=== PATIENT | female | born 1990 | race Caucasian/White ===

== ENCOUNTER 2019-02-14 08:54 | Inpatient (IN) ==
[2019-02-14 09:40] LABS: Basophils % 0.2 % (0.0-0.8); Eosinophils % 0.3 % (0.00-10.9); Hematocrit 35.9 VOL% (35.7-47.0); Hemoglobin 12.2 GM/DL (12.0-16.0); Immature Granulocytes % 1.1 %; Immature Granulocytes Absolute 0.13 #; Lymphocytes # 1.9 10*3/uL (1.4-4.0); Lymphocytes % 16.7 % (21.3-54.2); Mean Corpuscular Volume 91.8 FL (87-102); Mean Platelet Volume 10.6 FL (9.6-12.0); Monocytes % 7.4 % (1.7-12.7); Neutrophils % 74.3 % (38.7-73.9); Platelet Count 259 T/CUMM (130-400); Red Blood Count 3.91 MC/CUMM (3.8-5.5); White Blood Count 11.5 T/CUMM (4-12)
[2019-02-14] MEDS ORDERED: MAGNESIUM SULF RIDER 4 GM in PREMIX 1 EACH IV ONE (09:40)
[2019-02-14 09:49] LABS: INR 0.9; PT Patient Result 9.4 SECS (9.6-12.2); Partial Thromboplastin Time 25.6 SECS (20.8-36.0)
[2019-02-14 10:07] LABS: Alanine Aminotransferase 31 U/L (13-56); Albumin 2.6 G/DL (3.4-5.0); Alkaline Phosphatase 101 U/L (45-117); Aspartate Amino Transferase 17 U/L (0-37); Bilirubin,Total < 0.39 MG/DL (0.2-1.0); Blood Urea Nitrogen 8 MG/DL (7-18); Calcium 8.4 MG/DL (8.5-10.1); Estimated Glom Filtration Rate 153 ML/MIN; Glucose 108 MG/DL (74-106); Osmolality,Calculated 277.4 MOS/KG (273-304); Total Protein 6.5 G/DL (6.4-8.3); Uric Acid 3.5 MG/DL (2.6-6.0)
[2019-02-14] MEDS: MAGNESIUM SULF DRIP 40 GM/1,000 ML ML IV SCH (10:15)
[2019-02-14] MEDS: LACTATED RINGERS 1,000 ML IV SCH (10:16)
[2019-02-14 11:04] LABS: Amorphous Crystals,Urine Few /HPF (Few); Apearance,Urine Slightly Hazy (Clear); Bilirubin,Urine Negative (Negative); Blood, Urine Negative (Negative); Glucose,Urine (UA) Negative (Negative); Ketones,Urine Negative (Negative); Mucus,Urine Many /LPF (Occasional); Nitrite,Urine Negative (Negative); Protein,Urine 30 MG/DL; RBC,Urine 1 /HPF (0-4); Squamous Epithelial Cell,Urine Occasional /HPF (0-10); Urine Color Yellow (Yellow); Urine Specific Gravity 1.019 (1.001-1.035); Urine Urobilinogen < 2.0 EU/DL (0.2-1.0); WBC,Urine <1 /HPF (0-6)
[2019-02-14] MEDS: AMPICILLIN INJ 2,000 MG in SODIUM CHLORIDE 0.9% 100 ML IV SCH ×2 (12:08→18:47)
[2019-02-15] MEDS: AMPICILLIN INJ 2,000 MG in SODIUM CHLORIDE 0.9% 100 ML IV SCH ×2 (00:02→05:47)
[2019-02-15] MEDS ORDERED: ACETAMINOPHEN 325 MG TABLET PO ONE (03:51)
[2019-02-15] MEDS: MAGNESIUM SULF DRIP 40 GM/1,000 ML ML IV SCH (05:20)
[2019-02-15] MEDS ORDERED: OXYTOCIN/LR 20 UNIT/1,000 ML BAG IV SCH (06:00)
[2019-02-15] MEDS ORDERED: AMPICILLIN INJ 1,000 MG in SODIUM CHLORIDE 0.9% 100 ML IV SCH (10:00)
[2019-02-15] MEDS ORDERED: CITRIC ACID/SODIUM CITRATE 30 ML UDCUP PO ONE (12:06)
[2019-02-15] MEDS ORDERED: ceFAZolin 3,000 MG in SYRINGE 1 EACH IV ONE (12:06)
[2019-02-15] MEDS ORDERED: FAMOTIDINE 20 MG/2 ML VIAL IV ONE (12:06)
[2019-02-15] MEDS: hydrALAZINE 20 MG/1 ML VIAL IV PRN ×2 (12:11→12:31)
[2019-02-15] MEDS: LACTATED RINGERS 1,000 ML IV SCH ×2 (12:13→22:14)
[2019-02-15] MEDS ORDERED: TRANEXAMIC ACID 1,000 MG/10 ML VIAL ONE (12:59)
[2019-02-15] MEDS ORDERED: miSOPROStoL 200 MCG TABLET ONE (12:59)
[2019-02-15] MEDS ORDERED: METHYLERGONOVINE 0.2 MG/1 ML AMP ONE (13:00)
[2019-02-15] MEDS ORDERED: CARBOPROST TROMETHAMINE 250 MCG/ML AMP IM ONE (13:00)
[2019-02-15 14:30] LABS: Amorphous Crystals,Urine Occasional /HPF (Few); Apearance,Urine CLEAR (Clear); Bilirubin,Urine Negative (Negative); Blood, Urine Negative (Negative); Glucose,Urine (UA) Negative (Negative); Ketones,Urine 80 mg/dL (Negative); Mucus,Urine Occasional /LPF (Occasional); Nitrite,Urine Negative (Negative); Protein,Urine Negative; RBC,Urine 1 /HPF (0-4); Urine Color Yellow (Yellow); Urine Specific Gravity 1.013 (1.001-1.035); Urine Urobilinogen < 2.0 EU/DL (0.2-1.0); WBC,Urine <1 /HPF (0-6)
[2019-02-15] MEDS ORDERED: BUPIVACAINE SPINAL 0.75% 2 ML AMP SPINAL ONE (14:35)
[2019-02-15] MEDS ORDERED: PHENYLEPHRINE 1 MG/10 ML SYRINGE IV ONE (14:37)
[2019-02-15] MEDS ORDERED: LACTATED RINGERS 2,000 ML IV ONE (14:37)
[2019-02-15] MEDS ORDERED: MORPHINE 10 MG/10 ML VIAL ONE (14:37)
[2019-02-15] MEDS ORDERED: ONDANSETRON 4 MG/2 ML VIAL ONE (14:37)
[2019-02-15] MEDS ORDERED: diphenhydrAMINE 50 MG/1 ML VIAL IV PRN (15:56)
[2019-02-15] MEDS ORDERED: ACETAMINOPHEN 325 MG TABLET PO PRN (17:06)
[2019-02-15] MEDS ORDERED: ONDANSETRON 4 MG/2 ML VIAL IV PRN (17:06)
[2019-02-15] MEDS: ceFAZolin 1,000 MG in SYRINGE 1 EACH IV SCH (19:44)
[2019-02-15] MEDS: DOCUSATE SODIUM 100 MG CAPSULE PO SCH (20:56)
[2019-02-16] MEDS: MAGNESIUM SULF DRIP 40 GM/1,000 ML ML IV SCH (02:56)
[2019-02-16] MEDS: ceFAZolin 1,000 MG in SYRINGE 1 EACH IV SCH (03:35)
[2019-02-16 05:56] LABS: Basophils % 0.2 % (0.0-0.8); Eosinophils # 0.1 10*3/uL (0.0-0.87); Eosinophils % 0.5 % (0.00-10.9); Hematocrit 32.5 VOL% (35.7-47.0); Immature Granulocytes % 1.1 %; Immature Granulocytes Absolute 0.14 #; Lymphocytes # 2.3 10*3/uL (1.4-4.0); Lymphocytes % 17.5 % (21.3-54.2); Mean Corpuscular HGB Conc 33.8 GM/DL (32-36); Mean Corpuscular Volume 92.1 FL (87-102); Mean Platelet Volume 10.8 FL (9.6-12.0); Monocytes % 6.6 % (1.7-12.7); Neutrophils % 74.1 % (38.7-73.9); Platelet Count 236 T/CUMM (130-400); Red Blood Count 3.53 MC/CUMM (3.8-5.5); Red Cell Distribution Width 13.1 % (9.3-17.3); White Blood Count 13.3 T/CUMM (4-12)
[2019-02-16] MEDS: DOCUSATE SODIUM 100 MG CAPSULE PO SCH ×3 (09:38→22:30)
[2019-02-16] MEDS: MULTIVITAMIN (PRENATAL) TABLET PO SCH (09:38)
[2019-02-16] MEDS: KETOROLAC 30 MG/1 ML VIAL IV SCH ×2 (12:50→22:30)
[2019-02-16] MEDS: SIMETHICONE CHEW 80 MG TABLET PO PRN (19:24)
[2019-02-16] MEDS: MAGNESIUM HYDROXIDE SUSP 30 ML UDCUP PO PRN (19:24)
[2019-02-16] MEDS ORDERED: guaiFENesin 200 MG/10 ML UDCUP PO PRN (20:39)
[2019-02-17] MEDS: KETOROLAC 30 MG/1 ML VIAL IV SCH ×2 (03:38→06:18)
[2019-02-17] MEDS: DOCUSATE SODIUM 100 MG CAPSULE PO SCH ×2 (08:14→21:55)
[2019-02-17] MEDS: SIMETHICONE CHEW 80 MG TABLET PO PRN ×2 (08:14→21:55)
[2019-02-17] MEDS: MAGNESIUM HYDROXIDE SUSP 30 ML UDCUP PO PRN ×2 (08:14→21:55)
[2019-02-17] MEDS: MULTIVITAMIN (PRENATAL) TABLET PO SCH (08:14)
[2019-02-17] MEDS: IBUPROFEN 800 MG TABLET PO PRN ×2 (14:36→22:11)
[2019-02-18 09:38] VITALS: BP 135/83
[2019-02-18] MEDS: DOCUSATE SODIUM 100 MG CAPSULE PO SCH (11:25)
[2019-02-18] MEDS: MULTIVITAMIN (PRENATAL) TABLET PO SCH (11:25)
== END 2019-02-18 16:10 | disposition home or self-care (01) | DRG 788 ==
LOC: N.LDOUT 08:54 → N.LD 08:55 → N.OB 02-16 14:16
PROVIDERS: ADMIT Obstetrics & Gynecology; ATTEND Obstetrics & Gynecology
PROC: LDCSECT (ICD-10-PCS; 2019-02-15 12:30)